=== PATIENT | male | born 1930 | race Caucasian/White ===

== ENCOUNTER 2017-04-19 10:01 | Inpatient (IN) ==
[2017-04-19] MEDS ORDERED: NITROSTAT SL PRN (10:27)
[2017-04-19] MEDS ORDERED: VISTARIL INJ IM PRN (10:27)
[2017-04-19] MEDS ORDERED: TYLENOL PO PRN (10:27)
[2017-04-19] MEDS ORDERED: ATROPINE SULFATE PFS IVP PRN (10:27)
[2017-04-19] MEDS ORDERED: MORPHINE 4 MG/ML SYRINGE IVP PRN (10:27)
[2017-04-19 10:47] VITALS: BMI 28.5
[2017-04-19 10:47] LABS: BASOPHILS # (AUTO) 0.1 K/uL (0-0.2); BASOPHILS % (AUTO) 0.5 % (0.0-3.0); EOSINOPHILS # (AUTO) 0.2 K/ul (0.0-0.7); HEMATOCRIT 43.2 % (42.0-52.0); HEMOGLOBIN 14.6 g/dl (14.0-18.0); IMMATURE GRANULOCYTE % (AUTO) 0.3 % (0.0-5.0); LYMPHOCYTES # (AUTO) 1.9 K/uL (0.60-3.4); LYMPHOCYTES % (AUTO) 19.4 (10.0-50.0); MEAN CORPUSCULAR HEMOGLOBIN 30.5 pg (27.0-31.0); MEAN CORPUSCULAR HGB CONC 33.8 (31.8-35.4); MEAN CORPUSCULAR VOLUME 90.2 fl (80.0-94.0); MONOCYTES # (AUTO) 0.7 K/uL (0.4-2.0); MONOCYTES % (AUTO) 7.5 (0-10); NEUTROPHILS # (AUTO) 6.9 K/ul (2.0-6.9); NEUTROPHILS % (AUTO) 70.3; PLATELET COUNT 221 10^3/uL (140-440); RED BLOOD COUNT 4.79 10^6/ul (4.70-6.10); WHITE BLOOD COUNT 9.78 K/ul (4.2-10.2)
[2017-04-19 11:30] LABS: ALANINE AMINOTRANSFERASE 36 U/L (12-78); ALBUMIN 3.9 g/dL (3.4-5.0); ALBUMIN/GLOBULIN RATIO 1.15; ALKALINE PHOSPHATASE 72 U/L (56-119); ANION GAP 11.1; ASPARTATE AMINO TRANSFERASE 28 U/L (15-37); BILIRUBIN,TOTAL 0.58 mg/dL (0.00-1.20); BLOOD UREA NITROGEN 23 mg/dL (7-18); BUN/CREATININE RATIO 15.23; CALCIUM 10.1 mg/dL (8.2-10.2); CARBON DIOXIDE 28 mmol/L (23-31); CHLORIDE 106 mmol/L (98-107); CREATINE KINASE 120 U/L; CREATININE 1.51 mg/dL (0.60-1.10); GLUCOSE 91 mg/dL (82-115); MYOGLOBIN 73 ng/ml; POTASSIUM 5.1 mmol/L (3.5-5.1); SODIUM 140 mmol/L (136-145); TOTAL PROTEIN 7.3 g/dL (5.8-8.1)
[2017-04-19 11:44] LABS: CREATINE KINASE MB 1.5 ng/ml (0.0-3.6)
--- NOTE | 2017-04-19 11:52 | DI ---
EXAM: Chest two views HISTORY: Shortness of air COMPARISON: 05/13/2015 TECHNIQUE: Two views of the chest were performed FINDINGS: The lungs are clear. There is no pleural effusion or pneumothorax. The heart is normal in size. The mediastinal contour is unchanged, noting atherosclerosis. There are no acute abnormal ities of the bones. IMPRESSION: No acute cardiopulmonary process.
--- NOTE | 2017-04-19 12:02 | US ---
EXAM: Bilateral carotid artery Doppler. History: Syncope. Technique: Multiple sonographic images through the bilateral internal carotid arteries were obtaine d. Color duplex Doppler was used to interrogate vascular flow. Findings: The right ICA peak systolic velocity is within normal limits measuring 1.0 meters per second. The r ight ICA/cca PSV ratio is normal at 0.9. Ohara scale images demonstrate mild to moderate plaque buil dup within the right internal carotid artery. The right vertebral artery is patent and demonstrates antegrade flow. The left ICA peak systolic velocity is within normal limits measuring 1.0 meters per second. The le ft ICA/cca PSV ratio is normal at 1.1. The left vertebral artery is patent and demonstrates antegra de flow. Ohara scale images demonstrate moderate plaque buildup within the left internal carotid art becca. Impression: Velocities indicate no significant hemodynamic stenosis of the bilateral internal carot id arteries. However, the ohara scale findings suggest greater plaque buildup. Consider correlation with CTA of the neck.
[2017-04-19 13:03] LABS: ADD URINE MICROSCOPIC NO; BILIRUBIN,URINE Negative (NEGATIVE); KETONES,URINE Negative (NEGATIVE); LEUKOCYTE ESTERASE ,URINE Negative (NEGATIVE); NITRITE,URINE Negative (NEGATIVE); PH,URINE 7.5 (5-9); PROTEIN,URINE Negative (NEGATIVE); URINE, BLOOD Negative (NEGATIVE)
--- NOTE | 2017-04-19 13:15 | MRI ---
EXAM: MRI brain without and with IV contrast. DATE: 19 April 2017. HISTORY: Small, syncopal episode. TECHNIQUE: Sagittal T1W pre and postcontrast, axial T2W, axial FLAIR, axial T1W pre and postcontras t, axial DWI, coronal T1W postcontrast, and coronal T2W GRE sequences of the brain were obtained usi 1.2 Anaya magnet. CONTRAST: Omniscan - 19 ml IV. COMPARISON: None. FINDINGS: The lateral ventricles, temporal tips, third ventricle, Sylvian fissures, and many cerebr al sulci are mildly prominent due to involutional change. No midline shift, mass effect or abnormal extra-axial fluid collection is apparent. Bilateral paramidline anterior medulla 4mm DWI slightly bright areas likely do not have corresponding abnormalities on any of the other sequences. No acute hemorrhage or enhancing neoplasm is identified. No abnormal contrast enhancement is identified in the brain, meninges or dura. Small, confluent rim of T2W/FLAIR hyperintensity is observed in the wh ite matter abutting each lateral ventricle. Multiple 2 mm to 2 cm, T2W/FLAIR bright, non-enhancing foci are scattered within the trivedi radiata, centrum semiovale and subcortical white matter bilater ally. The casiano - white matter differentiation is normal. T2W GRE black, 3 mm focus in the region o f the pineal gland is consistent with benign calcification. No migration or diverticulation abnorma lity is identified. No mesial temporal sclerosis is demonstrated. Prominent Virchow-Chapo spaces a re observed at the inferior aspect of each basal ganglia. The 7th/8th cranial nerve complexes, cere bellopontine angles, brainstem, and visible cervical spinal cord are normal. There is no cerebellar tonsillar ectopia. The pituitary gland is normal in size, and has normal signal. Corpus callosum is normal in size and configuration. Flow voids are present in the major intracranial arteries and in the dural venous sinuses. No aneurysm, AVM or dural venous sinus thrombosis is apparent. No orb it abnormality is identified. The mastoid air cells are unremarkable. There is mild mucosal thicke jared within both maxillary sinuses and minor mucosal thickening in scattered ethmoid air cells. A l eft maxillary sinus medial wall lesion (14 mm) with internal 8 mm T1W dark, non-enhancing focus may represent retention cyst with inspissated mucous. No neck mass or lymphadenopathy is detected. No calvarial neoplasm or acute fracture is evident. A T2W/T1W/IR bright, non-enhancing 2.3 mm deep x 17 mm diameter focus abutting the right frontal outer cortex is likely a small scalp lipoma. IMPRESSIONS: 1. Subtle DWI bright foci in the anterior medulla is likely artifact. Correlate with clinical symp toms to exclude the slight possibility of true infarct. No other DWI abnormalities to indicate infar ction elsewhere the brain. 2. No acute hemorrhage, enhancing mass or hydrocephalus. 3. Moderate supratentorial small vessel disease. 4. Mild cerebral atrophy (primarily frontoparietal). 5. Mild ethmoid and maxillary sinus disease. Note: Report called to cano nurse (November) at 1305 hrs, 19 April 2017.
--- NOTE | 2017-04-19 15:06 | US ---
EXAM: Bilateral lower extremity venous Doppler History: Bilateral lower extremity pain. Technique: Multiple sonographic images through the bilateral lower extremities were obtained. Tobyhanna r duplex Doppler was used to interrogate vascular flow. Findings: The bilateral common femoral, greater saphenous, profunda, superficial femoral, popliteal, peroneal, posterior tibial and anterior tibial veins demonstrate spontaneous flow with normal compr ession and normal augmentation. Impression: No sonographic evidence for deep venous thrombosis.
[2017-04-19] MEDS: LOVENOX SUBCUT SCH ×2 (17:03→21:19)
[2017-04-19 19:09] LABS: CREATINE KINASE 138 U/L; MYOGLOBIN 84 ng/ml
[2017-04-19 19:13] LABS: CREATINE KINASE MB 1.6 ng/ml (0.0-3.6)
[2017-04-20 04:50] LABS: BASOPHILS # (AUTO) 0.1 K/uL (0-0.2); BASOPHILS % (AUTO) 0.5 % (0.0-3.0); EOSINOPHILS # (AUTO) 0.4 K/ul (0.0-0.7); EOSINOPHILS % (AUTO) 3.8 % (0.0-7.0); HEMATOCRIT 39.9 % (42.0-52.0); HEMOGLOBIN 13.3 g/dl (14.0-18.0); IMMATURE GRANULOCYTE % (AUTO) 0.2 % (0.0-5.0); LYMPHOCYTES # (AUTO) 2.4 K/uL (0.60-3.4); LYMPHOCYTES % (AUTO) 26.3 (10.0-50.0); MEAN CORPUSCULAR HEMOGLOBIN 30.2 pg (27.0-31.0); MEAN CORPUSCULAR HGB CONC 33.3 (31.8-35.4); MEAN CORPUSCULAR VOLUME 90.7 fl (80.0-94.0); MONOCYTES # (AUTO) 0.8 K/uL (0.4-2.0); MONOCYTES % (AUTO) 8.3 (0-10); NEUTROPHILS # (AUTO) 5.6 K/ul (2.0-6.9); NEUTROPHILS % (AUTO) 60.9; PLATELET COUNT 196 10^3/uL (140-440)
[2017-04-20 05:19] LABS: ALBUMIN 3.5 g/dL (3.4-5.0); ALBUMIN/GLOBULIN RATIO 1.25; ANION GAP 13.6; BILIRUBIN,TOTAL 0.49 mg/dL (0.00-1.20); BUN/CREATININE RATIO 14.18; CALCIUM 9.6 mg/dL (8.2-10.2); CREATININE 1.48 mg/dL (0.60-1.10); POTASSIUM 4.6 mmol/L (3.5-5.1); TOTAL PROTEIN 6.3 g/dL (5.8-8.1)
[2017-04-20] MEDS: ASPIRIN EC PO SCH (08:00)
[2017-04-20] MEDS: LOVENOX SUBCUT SCH ×2 (09:37→20:33)
--- NOTE | 2017-04-20 11:34 | PCM.PROG ---
Attending Provider: ATTENDING PROVIDER: Dr. STEVEN DILLON DATE OF SERVICE: 04/20/17 SUBJECTIVE: This 87 year old WHITE/ M was hospitalized 04/19/17. The patient is seen with Shaneka, Nurse Practitioner. The patient is alert, sitting in chair , states he is feeling well. No episodes of dizziness or syncope. No lightheadness. The patient is having echo and CTA of chest today. REVIEW OF SYSTEMS: CONSTITUTIONAL: No night sweats. No fatigue, malaise, lethargy. No fever or chills. HEENT: Eyes: No visual changes. No eye pain. No eye discharge. ENT: No runny nose. No epistaxis. No sinus pain. No odynophagia. No congestion. RESPIRATORY: No cough, no congestion. No hemoptysis. No shortness of breath. CARDIOVASCULAR: No angina symptoms. No CHF symptoms. No atypical chest pain for CAD. No palpitations. No orthopnea.. GASTROINTESTINAL: No abdominal pain. No nausea or vomiting. No diarrhea or constipation. No hematemesis. No hematochezia. GENITOURINARY: No urgency. No frequency. No dysuria. No hematuria. No obstructive symptoms. No discharge. No pain. No significant abnormal bleeding. MUSCULOSKELETAL: No musculoskeletal pain; no joint swelling. NEUROLOGICAL: Awake, alert, oriented to time, place and person. No headache. No neck pain. No syncope. No seizures. No dizziness. PSYCHIATRIC: Not anxious. No depression. No suicidal thoughts. No homicidal thoughts. SKIN: No rash. No lesions. No wounds. ENDOCRINE: No unexplained weight loss. No weight gain. HEMATOLOGIC/LYMPHATIC: No anemia. No purpura. No petechiae. No prolonged or excessive bleeding. No palpable lymph nodes. PHYSICAL EXAMINATION: GENERAL: The patient is awake, alert and oriented, sitting in bedside chair in no distress. VITAL SIGNS: Temperature 97.8 F, Pulse 60, Respiratory Rate 20, BP 107/66, Pulse Ox 93% HEENT: Head normocephalic, atraumatic. Eyes: Extraocular muscles are intact. Pupils are equal, round and reactive to light and accommodation. Ears: No lesions. Nose appeared normal. Throat: No exudate or erythema. NECK: Supple. No JVD, no carotid bruit. No lymphadenopathy or thyromegaly. LUNGS: Clear to auscultation. Percussion note normal. Chest symmetrical. HEART: S1, S2, no S3. No murmurs. No cyanosis or clubbing. No ascites. Pulses: Dorsalis pedis and posterior tibial pulses +1 to +2 both sides. ABDOMEN: Soft. Non-tender. Bowel sounds active. No CVA tenderness. No mass felt. EXTREMITIES: No edema. Full range of motion of all extremities, equal. NEUROLOGIC: No focal deficit. Cranial nerves II through XII are grossly intact. No headache, no double vision or headache. SKIN: Not dry. Intact. Turgor-normal. LYMPHATIC: No palpable lymph nodes/no lymphedema. MUSCULOSKELETAL: Normal joints with no swelling. Muscle tone is normal. LAB REVIEW: 04/20/17 04:48 04/20/17 04:48 04/20/17 04:48: WBC 9.20, RBC 4.40 L, Hgb 13.3 L, Hct 39.9 L, MCV 90.7, MCH 30.2 , MCHC 33.3, RDW Coeff of Darwin 13.6, Plt Count 196, Immature Gran % (Auto) 0.2, Neut % (Auto) 60.9, Lymph % (Auto) 26.3, [place] % (Auto) 8.3, Eos % (Auto) 3.8, Baso % (Auto) 0.5, Immature Gran # (Auto) 0.0, Neut # 5.6, Lymph # 2.4, [place] # 0.8, Eos # 0.4, Baso # 0.1, Sodium 142, Potassium 4.6, Chloride 106, Carbon Dioxide 27, Anion Gap 13.6, BUN 21 H, Creatinine 1.48 H, Estimated GFR (MDRD) 45.00, BUN/Creatinine Ratio 14.18, Glucose 96, Calcium 9.6, Total Bilirubin 0.49 , AST 22, ALT 31, Alkaline Phosphatase 62, Total Protein 6.3, Albumin 3.5, Globulin 2.8, Albumin/Globulin Ratio 1.25 04/19/17 18:30: Total Creatine Kinase 138, CK-MB (CK-2) 1.6, CK-MB (CK-2) % 1.98935, Myoglobin 84, Troponin I < 0.0100 04/19/17 12:46: Urine Color Yellow, Urine Clarity Clear, Urine pH 7.5, Ur Specific [place] 1.015, Urine Protein Negative, Urine Glucose (UA) Negative, Urine Ketones Negative, Urine Blood Negative, Urine Nitrite Negative, Urine Bilirubin Negative, Urine Urobilinogen 0.2, Ur Leukocyte Esterase Negative 04/19/17 10:40: WBC 9.78, RBC 4.79, Hgb 14.6, Hct 43.2, MCV 90.2, MCH 30.5, MCHC 33.8, RDW Coeff of Darwin 13.6, Plt Count 221, Immature Gran % (Auto) 0.3, Neut % (Auto) 70.3, Lymph % (Auto) 19.4, [place] % (Auto) 7.5, Eos % (Auto) 2.0, Baso % (Auto) 0.5, Immature Gran # (Auto) 0.0, Neut # 6.9, Lymph # 1.9, [place] # 0.7, Eos # 0.2, Baso # 0.1, D-Dimer (Manual) 658.69, Sodium 140, Potassium 5.1, Chloride 106, Carbon Dioxide 28, Anion Gap 11.1, BUN 23 H, Creatinine 1.51 H, Estimated GFR (MDRD) 44.00, BUN/Creatinine Ratio 15.23, Glucose 91, Calcium 10.1 , Total Bilirubin 0.58, AST 28, ALT 36, Alkaline Phosphatase 72, Total Creatine Kinase 120, CK-MB (CK-2) 1.5, CK-MB (CK-2) % 1.00807, Myoglobin 73, Troponin I < 0.0100, B-Natriuretic Peptide 32, Total Protein 7.3, Albumin 3.9, Globulin 3.4 , Albumin/Globulin Ratio 1.15, Vitamin B12 563, TSH 2.856, Free T4 0.83 ASSESSMENT: 1. Syncope/fall 2. Hypotension 3. Chronic kidney disease PLAN: 1. CTA chest today 2. Echocardiogram EDUCATION CARRIED OUT ABOUT: Orthostatic hypotension discussed with patient and . Plan and coordination of the patient's care discussed in the presence of Asthma Educator and nurse. CONDITION: Stable SCRIBED BY: ZACH RAMEY Bead Cutter scribed while in presence of service performed by Dr. STEVEN DILLON/SHANEKA OLIVARES APRN on 04/20/17 ([id number])
--- NOTE | 2017-04-20 15:44 | HP ---
DATE OF SERVICE: 04/19/17 REASON FOR HOSPITALIZATION/HISTORY OF PRESENT ILLNESS: Fell this morning after taking shower, passed out. Then woke on floor. Last Wednesday had vertigo and fell felt good this morning when woke up. Played 18 holes Wednesday. REVIEW OF SYSTEMS: CONSTITUTIONAL: No fever, Fatigue. HEENT: No sinus drainage, no sore throat. RESPIRATORY: No cough, no congestion. CARDIOVASCULAR: No atypical chest pain for coronary artery disease. No angina , CHF symptoms, palpitations or shortness of breath. GASTROINTESTINAL: No melena or abdominal pain. No GERD. GENITOURINARY: No hematuria, no prostatism, no polyuria. TOOL/DIE MAKER: No blackout, no dizziness, no headache, no double vision. MUSCULOSKELETAL: Osteoarthritis pain, no joint swelling. ENDOCRINE: No weight loss, no weight gain. SKIN: Not dry, no rash. PSYCHIATRIC: Not anxious, no depression, no suicidal thoughts, no homicidal thoughts. SOCIAL HISTORY: Marital Status: . Alcohol Usage: No. Tobacco Usage: No. Family History : Father -CHF and and cancer prostate, Mother , Brother 2 2living and 5 sisters. MEDICAL/SURGICAL HISTORY: History of Pulmonary embolism Hypertension Chronic kidney disease, stage 3 Hyperglycemia Dyslipidemia Hernia Repair 2005 MEDICATIONS: Losartan 100mg PO daily Flax seed Antivert 25mg PO three times a day PRN Magnesium 250mg PO twice a day Loratadine 10mg at bedtime Vitamins ALLERGIES: Side effect on Lipitor/Crestor- muscle cramps PHYSICAL EXAMINATION: V/S: Pulse 74, blood pressure 122/84 and oxygen saturation 93. GENERAL APPEARANCE: Oriented times three. HEENT: Normal. Pupils are equal and reactive to light. Small right frontal hematoma 1 1/2 inch in diameter NECK: No JVP, bruits. RESPIRATORY: Lungs are clear. Decreased breath sounds. CARDIOVASCULAR: S1, S2, no S3, no murmurs. No cyanosis, clubbing. No ascites. GI/ABDOMEN: No tenderness. Bowel sounds are active. EXTREMITIES: Edema, pulses +1, equal. TOOL/DIE MAKER: Deep tendon reflexes, sensory, motor and gait all normal. RECTAL: Refused. /PROSTATE: 4-15 (3.8) . ASSESSMENT: 1. Fall 2. Syncopal episode 3. Hypertension 4. Dyslipidemia 5. Chronic kidney disease, stage 3 6. Hyperglycemia 7. PSA 8. History of Pulmonary embolism PLAN: 1. Admit -syncope regular 2. Routine Telemetry orders. 3. MRI of head with contrast 4. Carotid scan 5. Echo 2D M Mode 6. Holter 7. B12 Level 8. D-dimer/BNP 9. T4 TSH 10.Daily CBC and CMP 11.Check postural blood pressure changes. TIME SPENT: More than 70 minutes. ADDENDUM: The patient had venous scan done which was negative for any DVT. Carotid scan no hemodynamically significant occlusive artery disease. The patient's hgb 14.6 , hct 43, WBC 9,[address] x-ray normal. B12 level normal, D- Dimer is 6 with TH slightly elevated. CT angio for pulmonary embolism is ordered for the morning. Creatinine 1.5, BUN 23 which is steady. BNP 32 normal. MRI of the brain not acute hemorrhage, no mass and no hydrocephalus. MTDD
--- NOTE | 2017-04-20 15:58 | CT ---
EXAM: CTA chest for PE HISTORY: Elevated D-dimer with shortness of breath COMPARISON: CT chest 12/03/2014 and 08/10/2014 TECHNIQUE: CTA of the chest was performed from the lung apices to the upper abdomen after 100 ml of Visipaque IV contrast was administered using PE protocol. 3-D imaging was also provided. FINDINGS: There is no filling defect in the pulmonary arteries to the level of the subsegmental pul monary arteries. The heart is normal without signs of ventricular strain. The aorta demonstrates m ild atherosclerotic disease. The heart is unremarkable without pericardial fluid. There are few sc attered nonpathologically enlarged mediastinal lymph nodes with calcified subcarinal lymph node pres ent. There is no pneumothorax or pleural effusion. There is minimal bibasilar atelectasis. There is stephen e mild central airway thickening. There is no consolidation, nodule or mass. The airways are paten t. The osseous structures demonstrate degenerative disease. There is no acute compression fracture or displaced rib fracture. Soft tissues in the upper abdomen demonstrate calcified granulomas in the l iver. IMPRESSION: 1. No pulmonary embolism. 2. Mild bibasilar atelectasis. 3. Mild central airway thickening may represent reactive changes versus bronchitis. 4. Sequela of old granulomatous disease.
[2017-04-21 05:12] LABS: BASOPHILS % (AUTO) 0.5 % (0.0-3.0); EOSINOPHILS # (AUTO) 0.3 K/ul (0.0-0.7); EOSINOPHILS % (AUTO) 3.2 % (0.0-7.0); HEMATOCRIT 41.4 % (42.0-52.0); HEMOGLOBIN 13.8 g/dl (14.0-18.0); IMMATURE GRANULOCYTE % (AUTO) 0.5 % (0.0-5.0); LYMPHOCYTES # (AUTO) 1.9 K/uL (0.60-3.4); MEAN CORPUSCULAR HEMOGLOBIN 30.1 pg (27.0-31.0); MEAN CORPUSCULAR HGB CONC 33.3 (31.8-35.4); MEAN CORPUSCULAR VOLUME 90.4 fl (80.0-94.0); MONOCYTES # (AUTO) 0.8 K/uL (0.4-2.0); MONOCYTES % (AUTO) 8.8 (0-10); NEUTROPHILS # (AUTO) 5.7 K/ul (2.0-6.9); PLATELET COUNT 208 10^3/uL (140-440); RED BLOOD COUNT 4.58 10^6/ul (4.70-6.10); WHITE BLOOD COUNT 8.78 K/ul (4.2-10.2)
[2017-04-21 05:15] VITALS: TEMP 95.8
[2017-04-21 05:35] LABS: ALBUMIN 3.6 g/dL (3.4-5.0); ALBUMIN/GLOBULIN RATIO 1.2; ANION GAP 14.9; BILIRUBIN,TOTAL 0.52 mg/dL (0.00-1.20); BUN/CREATININE RATIO 14.86; CALCIUM 9.7 mg/dL (8.2-10.2); CREATININE 1.48 mg/dL (0.60-1.10); POTASSIUM 4.9 mmol/L (3.5-5.1); TOTAL PROTEIN 6.6 g/dL (5.8-8.1)
[2017-04-21 05:46] VITALS: BP 128/78
[2017-04-21] MEDS: LOVENOX SUBCUT SCH (08:48)
[2017-04-21] MEDS: ASPIRIN EC PO SCH (08:48)
--- NOTE | 2017-04-21 09:19 | PN ---
DATE OF SERVICE: 04/20/17 SUBJECTIVE: The patient is an 87 year old white male hospitalized with syncopal episode. The patient's syncope could have been postoral but so far the work up is negative. Telemetry shows sinus rhythm with no arrhythmias of any significancy. Holter is still pending. Echo pending. The patient's carotid scan was negative, MRI of the brain negative. Chest x-ray normal. All the electrolytes and thyroid profile negative. REVIEW OF SYSTEMS: CONSTITUTIONAL: No night sweats. No fatigue, malaise, lethargy. No fever or chills. HEENT: Eyes: No visual changes. No eye pain. No eye discharge. ENT: No runny nose. No epistaxis. No sinus pain. No sore throat. No odynophagia. No congestion. RESPIRATORY: No cough, no congestion. No hemoptysis. No shortness of breath. CARDIOVASCULAR: No angina symptoms. No CHF symptoms. No atypical chest pain for CAD. No palpitations. No orthopnea. GASTROINTESTINAL: No abdominal pain. No nausea or vomiting. No diarrhea or constipation. No hematemesis. No hematochezia. GENITOURINARY: No urgency. No frequency. No dysuria. No hematuria. No obstructive symptoms. No discharge. No pain. No significant abnormal bleeding. MUSCULOSKELETAL: No musculoskeletal pain; no joint swelling. NEUROLOGICAL: No headache. No neck pain. No syncope. No seizures. No dizziness. PSYCHIATRIC: Not anxious. No depression. No suicidal thoughts. No homicidal thoughts. SKIN: No rash. No lesions. No wounds. ENDOCRINE: No unexplained weight loss. No weight gain. HEMATOLOGIC/LYMPHATIC: No anemia. No purpura. No petechiae. No prolonged or excessive bleeding. No palpable lymph nodes. PHYSICAL EXAMINATION: GENERAL: The patient is oriented to time, place and person. VITAL SIGNS: Temperature 97.8, pulse 60, respiratory rate 20, blood pressure 107/66 and pulse ox 93% on room air. HEENT: Head normocephalic, atraumatic. Eyes: Extraocular muscles are intact. Pupils are equal, round and reactive to light and accommodation. Ears: No lesions. Nose appeared normal. Throat: No exudate or erythema. NECK: Supple. No JVD, no carotid bruit. No lymphadenopathy or thyromegaly. LUNGS: Clear to auscultation. Percussion note normal. Chest symmetrical. HEART: S1, S2, no S3. No murmurs. No cyanosis or clubbing. No ascites. Pulses: Dorsalis pedis and posterior tibial pulses +1 to +2 both sides. ABDOMEN: Soft. Nontender. Bowel sounds active. No CVA tenderness. No mass felt. Hemadurma seems to be resolving in the right frontal area. EXTREMITIES: No edema. Full range of motion of all extremities, equal. NEUROLOGIC: No focal deficit. Cranial nerves II through XII are grossly intact. No headache, no double vision or headache. SKIN: Not dry. Intact. Turgor - normal. LYMPHATIC: No palpable lymph nodes/no lymphedema. MUSCULOSKELETAL: Normal joints with no swelling. Muscle tone is normal. LABS: Hgb 13.3, Hct 39, WBC 9,200 normal differential, creatinine 1.4, BUN 21. The patient is waiting for CT angiogram to rule out pulmonary embolism done with the dye which is friendly to kidney disease. ASSESSMENT: 1. Syncope etiology likely postoral change. PLAN: 1. The patient blood pressure medication has already been discontinued. The patient's blood pressure this morning was 107/66. 2. The in the room and explained about all the findings. CONDITION: Stable. The patient is up and about. TIME SPENT: More than 30 minutes. Plan and coordination of the patient's care discussed in the presence of nurse. SHRUTHI
--- NOTE | 2017-04-21 09:21 | CM.DICTOOL ---
ADMISSION: 04/19/17 10:01 DISCHARGE: 04/21/17 DATE OF SERVICE: 04/21/17 FINAL DIAGNOSIS SYNCOPE HYPOTENSION, POSTURAL FALL AT HOME- GROUND LEVEL HYPERTENSION BY HISTORY CHRONIC RENAL DISEASE, STAGE 3 HISTORY OF PULMONARY EMBOLISM, 2013 RIGHT INGUINAL HERNIORRHAPY, 2005 LAST VITALS Temp Pulse Resp BP Pulse Ox 95.8 F L 72 16 128/78 93 L 04/21/17 05:15 04/21/17 05:46 04/21/17 05:15 04/21/17 05:46 04/21/17 05:15 ACTIVE HOME MEDICATIONS Loratadine (Claritin) 10 mg PO BEDTIME PRN Magnesium Oxide (Magnesium) 250 mg PO BID Meclizine HCL (Antivert) 25 mg PO TID PRN Multivitamen 1 ea PO DAILY ALLERGIES No Known Allergies Allergy (Unverified 08/10/14 14:32) NEW PRESCRIPTIONS: NO NEW PRESCRIPTIONS SMOKING: FORMER SMOKER NONE NOW DISEASE SPECIFIC EDUCATION: SYNCOPE POSTURAL HYPOTENSION HOME MEDICATIONS AND CHANGES ACTIVITY FOLLOW UP LAB REVIEW: 04/21/17 05:11 04/21/17 05:11 04/21/17 05:11: WBC 8.78, RBC 4.58 L, Hgb 13.8 L, Hct 41.4 L, MCV 90.4, MCH 30.1 , MCHC 33.3, RDW Coeff of Darwin 13.5, Plt Count 208, Immature Gran % (Auto) 0.5, Neut % (Auto) 65.0, Lymph % (Auto) 22.0, [place] % (Auto) 8.8, Eos % (Auto) 3.2, Baso % (Auto) 0.5, Immature Gran # (Auto) 0.0, Neut # 5.7, Lymph # 1.9, [place] # 0.8, Eos # 0.3, Baso # 0.0, Sodium 142, Potassium 4.9, Chloride 104, Carbon Dioxide 28, Anion Gap 14.9, BUN 22 H, Creatinine 1.48 H, Estimated GFR (MDRD) 45.00, BUN/Creatinine Ratio 14.86, Glucose 92, Calcium 9.7, Total Bilirubin 0.52 , AST 24, ALT 34, Alkaline Phosphatase 64, Total Protein 6.6, Albumin 3.6, Globulin 3.0, Albumin/Globulin Ratio 1.20 PLAN: DISCHARGE HOME TODAY RETURN TO SEE DR. DILLON NEXT WEEK. PLEASE CALL THE OFFICE TO SCHEDULE YOUR APPOINTMENT [phone] I HAVE CANCELLED YOUR APPOINTMENT SCHEDULED FOR TOMORROW, 04/21/17 RESUME YOUR HOME MEDICATIONS PER LIST PROVIDED BY THE NURSING STAFF DO NOT TAKE [place] POTASSIUM (COZAAR) TAKE YOUR LORATADINE (CLARITIN) AND MECLIZINE HCL (ANTIVERT) NEEDED NO NEW MEDICATIONS ACTIVITY: DANGLE YOUR LEGS FOR A FEW MINUTES PRIOR TO RISING FROM SITTING TO STANDING POSITION GET PLENTY OF REST AT HOME. GRADUALLY INCREASE YOUR ACTIVITY LEVEL ACCORDING TO YOUR TOLERATION DIET: HEALTHY HEART TOLERATED SUMMARY: THE PATIENT IS ALERT AND ORIENTED X3. HE CURRENTLY RESIDES AT HOME WITH HIS SPOUSE. HE IS INDEPENDENT WITH ADL'S. AND CONTINUES TO BE ABLE TO PROVIDE HIS OWN TRANSPORTATION. HE DESIRES TO RETURN TO HIS HOME AT DISCHARGE. HE HAS NO DME, HOME HEALTH OR HOMEMAKING SERVICES AT THIS TIME. THE PATIENT IS FEELING BETTER. HIS BLOOD PRESSURE READINGS ARE STABLE AND SHOW NO SIGNIFICANT CHANGES WHEN TAKEN ORTHOSTATICALLY. WE HAVE COMPLETED A 2-D AND M-MODE ECHO AND HOLTER MONITORING. WE HAVE DISCUSSED THE BLOOD PRESSURE AND HEART RATE WITH THE PATIENT AND EXPLAINED THAT IF HE SHOULD EXPERIENCE SUSTAINED AND MARKED BRADYCARDIA WITH SYMPTOMS, A PACEMAKER MAY BE CONSIDERED. HE WAS RECEPTIVE TO THE INFORMATION PROVIDED. WE ALSO DISCUSSED DISCONTINUING HOME MEDICATIONS (COZAAR) AND AVOIDING SUDDEN AND RAPID POSITION CHANGES. HE HAS BEEN ABLE TO BE UP AND ABOUT INDEPENDENTLY WITHOUT EXPERIENCING ANY ADVERSE SYMPTOMS. HE IS AWARE AND AGREEABLE FOR DISCHARGE PLANS TODAY. HIS SKIN TURGOR IS GOOD, WELL HYDRATED AND WITHOUT DECUBITUS ULCERS. HIS VITAL SIGNS ARE STABLE. MR. MANDUJANO IS PAIN-FREE AND READY FOR DISCHARGE TODAY. CURRENT CODE STATUS: FULL CODE STEVEN DILLON M.D.
--- NOTE | 2017-04-21 09:48 | ECHO2D ---
Date of Exam: 04/20/17 Ordering Physician: STEVEN DILLON Reason for Echo: SYNCOPE M-Mode Normal Adult Results LV Dimensions Normal Adult Results AoV Opening excursions >1.6 >1.6 LVEDD-base- 3.5-5.8 4.0 Ao root dimensions 2.0-3.7 3.6 LVESD-base- 3.1-4.6 L. Atrium dimensions 1.9-3.8 4.7 Post. Wall thickness 0.8-1.1 1.2 IV septum (thickness) 0.7-1.2 1.3 Post. Wall excursion 0.72-1.3 NORMAL Septal motion NORMAL Systolic motion R. Ventricular cavity 1.5-2.0 NORMAL LVEF 60% 66% Paradoxical septal wall motion NORMAL 2-D : ENLARGED LEFT ATRIAL CAVITY--NORMAL LEFT VENTRICULAR CONTRACTILITY--NO EFFUSION, NO THROMBUS, NORMAL VALVES--NORMAL LEFT VENTRICLE SIZE M-MODE: MV: NORMAL AV: NORMAL TV: NORMAL PV: CHAMBER SIZE: ENLARGED LEFT ATRIAL SIZE WALL MOTION: NORMAL PERICARDIUM: NORMAL INTERPRETATION: 1. 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 NORMAL LEFT VENTRICULAR CONTRACTILITY 3. NORMAL VALVES MTDD
--- NOTE | 2017-04-21 10:10 | HOLTER ---
PATIENT INFORMATION AND COMMENTS Indications: SYNCOPAL EPISODE __ Patient Medications: CLARITIN, MAGNESIUM, ANTIVERT, MULTI VITAMINS __ Pre-procedure Summary: Protocol: Standard Heart Rate Started: 04/19/17 1657 Minimum: 46 BPM Weight: 210 LBS Ended: 04/20/17 1238 Maximum: 114 BPM Height: 72" Duration: 19 HRS 42 MIN Average: 60 BPM _ INTERPRETATIONS/OBSERVATIONS: 1. BASIC RHYTHM: SINUS, RATE 46 TO 110/MINUTE, AVERAGE 60/MINUTE 2. FEW PAC'S AND RARE PVC'S 3. THREE SHORT RUNS OF SVT NOTED ( 4 TO 14 BEATS) 4[address] NO ST-T WAVE CHANGES FROM BASELINE 5. ACTIVITY LOG NOT MAINTAINED MTDD
--- NOTE | 2017-04-21 10:59 | PCM.PROG ---
Attending Provider: ATTENDING PROVIDER: Dr. STEVEN DILLON DATE OF SERVICE: 04/21/17 SUBJECTIVE: This 87 year old WHITE/ M was hospitalized 04/19/17. The patient is hospitalized with syncope/hypotension. The patient's workup with MRI, carotid scan, Ultrasound of heart, CTA of chest, telemetry, EKGS, cardiac markers all negative. REVIEW OF SYSTEMS: CONSTITUTIONAL: No night sweats. No fatigue, malaise, lethargy. No fever or chills. HEENT: Eyes: No visual changes. No eye pain. No eye discharge. ENT: No runny nose. No epistaxis. No sinus pain. No odynophagia. No congestion. RESPIRATORY: No cough, no congestion. No hemoptysis. No shortness of breath. CARDIOVASCULAR: No angina symptoms. No CHF symptoms. No atypical chest pain for CAD. No palpitations. No orthopnea.. GASTROINTESTINAL: No abdominal pain. No nausea or vomiting. No diarrhea or constipation. No hematemesis. No hematochezia. GENITOURINARY: No urgency. No frequency. No dysuria. No hematuria. No obstructive symptoms. No discharge. No pain. No significant abnormal bleeding. MUSCULOSKELETAL: No musculoskeletal pain; no joint swelling. NEUROLOGICAL: Awake, alert, oriented to time, place and person. No headache. No neck pain. No syncope. No seizures. No dizziness. PSYCHIATRIC: Not anxious. No depression. No suicidal thoughts. No homicidal thoughts. SKIN: No rash. No lesions. No wounds. ENDOCRINE: No unexplained weight loss. No weight gain. HEMATOLOGIC/LYMPHATIC: No anemia. No purpura. No petechiae. No prolonged or excessive bleeding. No palpable lymph nodes. PHYSICAL EXAMINATION: GENERAL: The patient is awake, alert and oriented, sitting in the chair in no distress. VITAL SIGNS: Temperature 95.8 F, Pulse 72, Respiratory Rate 16, BP 128/78, Pulse Ox 93% HEENT: Head normocephalic, atraumatic. Eyes: Extraocular muscles are intact. Pupils are equal, round and reactive to light and accommodation. Ears: No lesions. Nose appeared normal. Throat: No exudate or erythema. NECK: Supple. No JVD, no carotid bruit. No lymphadenopathy or thyromegaly. LUNGS: Clear to auscultation. Percussion note normal. Chest symmetrical. HEART: S1, S2, no S3. No murmurs. No cyanosis or clubbing. No ascites. Pulses: Dorsalis pedis and posterior tibial pulses +1 to +2 both sides. ABDOMEN: Soft. Non-tender. Bowel sounds active. No CVA tenderness. No mass felt. EXTREMITIES: No edema. Full range of motion of all extremities, equal. NEUROLOGIC: No focal deficit. Cranial nerves II through XII are grossly intact. No headache, no double vision or headache. SKIN: Not dry. Intact. Turgor-normal. LYMPHATIC: No palpable lymph nodes/no lymphedema. MUSCULOSKELETAL: Normal joints with no swelling. Muscle tone is normal. LAB REVIEW: 04/21/17 05:11 04/21/17 05:11 04/21/17 05:11: WBC 8.78, RBC 4.58 L, Hgb 13.8 L, Hct 41.4 L, MCV 90.4, MCH 30.1 , MCHC 33.3, RDW Coeff of [place] 13.5, Plt Count 208, Immature Gran % (Auto) 0.5, Neut % (Auto) 65.0, Lymph % (Auto) 22.0, [place] % (Auto) 8.8, Eos % (Auto) 3.2, Baso % (Auto) 0.5, Immature Gran # (Auto) 0.0, Neut # 5.7, Lymph # 1.9, [place] # 0.8, Eos # 0.3, Baso # 0.0, Sodium 142, Potassium 4.9, Chloride 104, Carbon Dioxide 28, Anion Gap 14.9, BUN 22 H, Creatinine 1.48 H, Estimated GFR (MDRD) 45.00, BUN/Creatinine Ratio 14.86, Glucose 92, Calcium 9.7, Total Bilirubin 0.52 , AST 24, ALT 34, Alkaline Phosphatase 64, Total Protein 6.6, Albumin 3.6, Globulin 3.0, Albumin/Globulin Ratio 1.20 ASSESSMENT: 1. Syncope/fall likely postural hypotension 2. Chronic kidney disease PLAN: 1. D/C antihypertensive medication. 2. The patient has CKD which is stable. 3. T4, TSH, BNP all negative. 4. Antivert p.r.n. 5. Claritin p.r.n. 6. Encouraged to drink a lot of fluids. 7. Discharge home. Plan and coordination of the patient's care discussed in the presence of Desk Director and nurse. CONDITION: STABLE SCRIBED BY: ZACH RAMEY [employer] Assistant scribed while in presence of service performed by Dr. STEVEN DILLON on 04/21/17 ([id number])
--- NOTE | 2017-04-26 10:27 | DS ---
DATE OF SERVICE: 04/21/17 FINAL DIAGNOSIS: 1. SYNCOPE 2. HYPOTENSION, POSTURAL 3. FALL AT HOME, GROUND LEVEL 4. HYPERTENSION BY HISTORY 5. CHRONIC RENAL DISEASE, STAGE 3 6. HISTORY OF PULMONARY EMBOLISM, 2013 7. RIGHT INGUINAL HERNIORRHAPHY, 2005 DISCHARGE INSTRUCTIONS: Followup appointment with Dr. Licea next week. Please call office to schedule appointment. Appointment scheduled for tomorrow, 04/21/17 has been canceled. MEDICATIONS AT DISCHARGE: 1. Magnesium 250 mg p.o. b.i.d. 2. Meclizine (Antivert) 25 mg p.o. t.i.d. p.r.n. 3. Multivitamin one each p.o. daily NEW PRESCRIPTIONS: No new prescriptions. MEDICATION CHANGES: 1. Do not take Losartan Potassium (Cozaar) 2. Take Loratadine (Claritin) and Meclizine HCL (Antivert) as needed DIET INSTRUCTIONS: Healthy Heart as tolerated ACTIVITY: Dangle your legs for a few minutes prior to rising from sitting to standing position. Get plenty of rest at home. Gradually increase your activity level according to your toleration. SMOKING: Former smoker; none now. DISEASE SPECIFIC EDUCATION: Syncope Postural hypotension Home medication and changes Activity Follow up HOSPITAL COURSE: This 87-year-old white male hospitalized with syncopal episode. The patient was worked up with carotid scan, which was hemodynamically nonsignificant. MRI of the brain was negative for hemorrhage, tumor or stroke. The patient also had an echocardiogram which showed normal LV contractility and normal valves, borderline LVH noted. The patient also had telemetry, EKGs that did not show any arrhythmias of any significance. There was no myocardial event. CT scan of the chest was negative for pulmonary embolism. Venous scan of both lower extremities was negative for deep venous thrombosis. The patient's electrolytes were normal. The patient was taken off Cozaar. The patient's blood pressure still remained around 125/85. He is advised not to take any blood pressure medication for now. Also, advised to monitor his blood pressure, to keep blood pressure around 135/85. The patient's condition is stable. The patient's neurological status was normal. CONDITION AT TIME OF DISCHARGE: Stable. PLAN: 1. Discharge home today 2. The patient is advised not to drive until he is seen again in followup and not to go and play golf, stay indoors. TIME SPENT: More than 60 minutes. MTDD
--- NOTE | 2017-04-26 10:29 | PN ---
CODING FOR BILLING 04/19/17 LEVEL 5 04/20/17 INTERMEDIATE 04/21/17 DISCHARGE MTDD
== END 2017-04-21 10:03 | disposition home or self-care (01) | DRG 312 ==
LOC: MEDSURG B 10:01
PROVIDERS: ADMIT Internal Medicine; ATTEND Internal Medicine
DX: I95.1 Orthostatic hypotension (principal); I51.7 Cardiomegaly; I10 Essential (primary) hypertension; I12.9 Hypertensive chronic kidney disease with stage 1 through stage 4 chronic kidney disease, or unspecified chronic kidney disease; N18.3 Chronic kidney disease, stage 3 (moderate); S00.93XA Contusion of unspecified part of head, initial encounter; W18.30XA Fall on same level, unspecified, initial encounter; Z86.711 Personal history of pulmonary embolism; Z79.899 Other long term (current) drug therapy
CPT/HCPCS: 36415; 80053; 81001; 82550; 82553; 82607; 83874; 83880; 84439; 84443; 84484; 85025; 85379; 93005; 93010; 93227; 99223; 99232; 99239

== ENCOUNTER 2018-05-04 09:41 | Outpatient (CLI) | payer OTHER ==
--- NOTE | 2018-05-04 12:50 | DI ---
Exam: Two views of the chest. Comparison: CTA PE protocol performed 04/20/2017. Reason for exam: Cough with shortness of breath. FINDINGS: No pneumothorax, pleural effusion, or focal consolidation. Patchy airspace opacities are s een in both lung bases. The cardiac silhouette is unchanged. Impression: 1. Patchy airspace opacities in the lung bases likely atelectasis/pneumonia. 2. No pneumothorax or focal airspace consolidation is seen.
== END 2018-05-04 09:42 | disposition home or self-care (01) ==
LOC: CAR 09:41
PROVIDERS: ATTEND Internal Medicine
DX: R06.02 Shortness of breath (principal); R05 Cough